=== PATIENT | male | born 1955 | race Caucasian/White ===

== ENCOUNTER 2018-02-26 14:19 | Inpatient (IN) | payer OTHER, MEDICARE ==
[~2018-02-26] VITALS: Ht 180.3 cm; Wt 113.4 kg
[~2018-02-26 14:19] MED LIST: ASPI81EC PO; CHOL10002 PO; LISI20 PO; METO50 PO; POTPHO PO; Prilosec Otc20 MG PO; SERT100 PO; SIMV40 PO; SULI150 PO
[2018-02-26 14:41] LABS: BASOPHILS ABSOLUTE AUTO 0.05 K/mm3 (0.00-0.23); BASOPHILS PERCENT AUTO 0 % (0-2); EOSINOPHILS ABSOLUTE AUTO 0.12 K/mm3 (0.00-0.68); EOSINOPHILS PERCENT AUTO 1 % (0-6); Hematocrit 40.2 % (37.0-53.0); Hemoglobin 13.5 g/dL (13.5-17.5); IMMATURE GRAN ABSOLUTE AUTO 0.16 K/mm3 (0.00-0.10); IMMATURE GRAN PERCENT AUTO 1 % (0-1); LYMPHOCYTES ABSOLUTE AUTO 1.77 K/mm3 (0.84-5.20); LYMPHOCYTES PERCENT AUTO 14 % (21-46); MONOCYTES PERCENT AUTO 6 % (4-13); Mean Corpuscular HGB 30.3 pg (26.0-34.0); Mean Corpuscular HGB Conc 33.6 g/dL (31.5-36.5); Mean Corpuscular Volume 90 fL (80-100); Mean Platelet Volume 9.9 fL (9.1-12.4); NEUTROPHILS ABSOLUTE AUTO 9.72 K/mm3 (1.96-9.15); NEUTROPHILS PERCENT AUTO 78 % (41-73); Platelet Count 219 K/mm3 (150-400); RDW Coefficient Variation 13.6 % (11.7-14.2); RDW Standard Deviation 44.6 fL (35.1-46.3); Red Blood Cell Count 4.46 M/mm3 (4.30-5.90); White Blood Cell Count 12.52 K/mm3 (4.00-11.30)
[2018-02-26 15:01] LABS: International Normalized Ratio 0.99; Prothrombin Time Results 10.2 Sec (9.7-11.5)
[2018-02-26 15:07] LABS: Albumin, Blood 4.3 g/dL (3.4-5.0); Albumin/Globulin Ratio 1.1 (0.8-1.8); Bilirubin, Total 0.7 mg/dL (0.1-1.0); Bun/Creatinine Ratio 17.2 (12.0-20.0); Calcium, Blood 9.8 mg/dL (8.5-10.1); Creatinine, Blood 1.45 mg/dL (0.60-1.20); Globulin, Blood 3.8 g/dL (2.2-4.0); Potassium, Blood 5.1 mmol/L (3.5-5.5); Total Protein, Blood 8.1 g/dL (6.4-8.2)
[2018-02-26] MEDS ORDERED: PSEU120ER (15:11)
[2018-02-26] MEDS ORDERED: METF500C PO (15:25)
[2018-02-26] MEDS ORDERED: ATOR40TA (15:26)
[2018-02-26] MEDS ORDERED: GLIP10 PO (15:26)
[2018-02-26] MEDS ORDERED: LAMO100 PO ×2 (15:27→20:55)
[2018-02-26] MEDS ORDERED: ATOR40TA PO (18:15)
[2018-03-02] MEDS ORDERED: METCAR500 PO (09:07)
[2018-03-02] MEDS ORDERED: OXYC5 PO (09:07)
== END 2018-03-02 10:01 | disposition home or self-care (01) | DRG 183 ==
LOC: ER 14:19 → SURS 14:20
PROVIDERS: Emergency Medicine
DX: S22.42XA Multiple fractures of ribs, left side, initial encounter for closed fracture (principal); S27.2XXA Traumatic hemopneumothorax, initial encounter; V84.5XXA Driver of special agricultural vehicle injured in nontraffic accident, initial encounter; I25.2 Old myocardial infarction; G40.909 Epilepsy, unspecified, not intractable, without status epilepticus; E78.5 Hyperlipidemia, unspecified; Z95.1 Presence of aortocoronary bypass graft
CPT/HCPCS: 36415; 70450; 71045; 71046; 71260; 72125; 74177; 80053; 82947; 83690; 84484; 85025; 85610; 93005; 93010; 94667; 96374; 97161; 97530; 99285-25; G8978; G8979; G8980; J1650; J1885; J3010; J7030; Q9967

== ENCOUNTER 2022-11-25 13:52 | Inpatient (IN) | payer OTHER, MEDICARE ==
[~2022-11-25] VITALS: Ht 180.3 cm; Wt 114.7 kg
[~2022-11-25 13:52] MED LIST changes: +ATOR40TA; +ATOR40TA PO; +GLIP10 PO; +LAMO100 PO; +METCAR500 PO; +METF500C PO; +OXYC5 PO; +PSEU120ER
[2022-11-25 14:48] LABS: BASOPHILS ABSOLUTE AUTO 0.04 K/mm3 (0.00-0.23); BASOPHILS PERCENT AUTO 0 % (0-2); EOSINOPHILS ABSOLUTE AUTO 0.14 K/mm3 (0.00-0.68); EOSINOPHILS PERCENT AUTO 1 % (0-6); Hematocrit 38.6 % (37.0-53.0); Hemoglobin 12.7 g/dL (13.5-17.5); IMMATURE GRAN PERCENT AUTO 1 % (0-1); LYMPHOCYTES ABSOLUTE AUTO 1.67 K/mm3 (0.84-5.20); LYMPHOCYTES PERCENT AUTO 16 % (21-46); MONOCYTES ABSOLUTE AUTO 0.65 K/mm3 (0.16-1.47); MONOCYTES PERCENT AUTO 6 % (4-13); Mean Corpuscular HGB 29.2 pg (26.0-34.0); Mean Corpuscular HGB Conc 32.9 g/dL (31.5-36.5); Mean Corpuscular Volume 89 fL (80-100); Mean Platelet Volume 9.3 fL (9.1-12.4); NEUTROPHILS ABSOLUTE AUTO 7.66 K/mm3 (1.96-9.15); NEUTROPHILS PERCENT AUTO 75 % (41-73); Platelet Count 215 K/mm3 (150-400); RDW Coefficient Variation 13.7 % (11.7-14.2); RDW Standard Deviation 44.3 fL (35.1-46.3); Red Blood Cell Count 4.35 M/mm3 (4.30-5.90); White Blood Cell Count 10.26 K/mm3 (4.00-11.30)
[2022-11-25 16:18] LABS: Albumin, Blood 3.9 g/dL (3.4-5.0); Bilirubin, Total 0.5 mg/dL (0.1-1.0); Bun/Creatinine Ratio 18.5 (12.0-20.0); Calcium, Blood 9.6 mg/dL (8.5-10.1); Creatinine, Blood 1.62 mg/dL (0.60-1.20); Potassium, Blood 5.3 mmol/L (3.5-5.5); Total Protein, Blood 7.9 g/dL (6.4-8.2)
[2022-11-25 18:48] VITALS: BP 116/81
--- NOTE | 2022-11-25 19:12 | NUR ---
ASSUMPTION OF CARE PT ARRIVED TO THE UNIT VIA HOSPITAL BED. HE IS ALERT AND ORIENTED. VSS, 02 100% ON 2L N/C. LUNG SOUNDS WERE COARSE AND DIMINISHED IN THE BASES. RUL CLEAR AND AN EXPIRATORY WHEEZE WAS NOTED IN THE RAZIA. PT EXPRESSED THAT HE WAS VERY PAINFUL WITH A PAIN RATING OF 155/10. THE PT WAS MEDICATED ACCORDING TO THE EMAR. THE PATIENT WAS ORIENTED TO THE ROOM AND HIS CALL LIGHT, AND EXPRESSED UNDERSTANDING. BED IN LOW POSITION AND CALL LIGHT IN REACH. WILL GIVE REPORT TO LEAD NUCLEAR MEDICINE TECHNOLOGIST RN.
[2022-11-25] MEDS ORDERED: ASPI81CH PO (19:38)
--- NOTE | 2022-11-25 20:30 | NUR ---
2030: IMAGING PERSONEL IN WITH PT FOR ULTRASOUND
[2022-11-26 04:15] VITALS: BP 96/85
--- NOTE | 2022-11-26 06:23 | NUR ---
SHIFT SUMMARY: PT IS A&0X4. REMAINED PAINFUL TO THE RIGHT RIBS T/O THE NIGHT. PAIN MANAGED WITH PO AND IV MEDICATION PER EMAR. PT TOLERATING FLUIDS AND VOIDING USING URINAL. PT WAS VERY PAINFUL WITH MOVEMENT. IMAGING SCHEDULED FOR THIS AM. ULTRASOUND COMPLETED LAST NIGHT. SEIZURE PADS IN PLACE FOR PT DUE TO HX. CONTINUOUS BIOX REMAINS IN PLACE AND 02% REMAINED STABLE T/O THE NIGHT. RESTING WITH CALL LIGHT IN REACH. WILL GIVE REPORT TO DAY TIME RN.
[2022-11-26 07:40] VITALS: BP 167/106
[2022-11-26 11:02] VITALS: BP 155/86
--- NOTE | 2022-11-26 12:26 | NUR ---
SKIN ASSESSMENT/DRESSING PT HAS RUPTURED BLISTERS UNDER AREA WHERE ADHESIVE WAS APPLIED FOR L AC IV. ALLEVYN DRESSING APPLIED. WILL CONTINUE TO MONITOR.
[2022-11-26 14:50] VITALS: BP 122/79
--- NOTE | 2022-11-26 17:25 | NUR ---
SHIFT SUMMARY PT IS A&OX4, PLEASANT, AND APPROPRIATE. PT IS VOIDING APPROPRIATELY, TOLERATING PO, AND AMB INDEPENDENTLY. PT'S PAIN MANAGED WITH TYLENOL, OXY, & DILAUDID. PT IS ON ROOM AIR AND VSS. PT WAS DIAPHORETIC WITH A LOW TEMP DURING SHIFT, BUT HAS SINCE RESOLVED. PT HAS RUPTURED BLISTERS UNDER AREA WHERE ADHESIVE WAS APPLIED FOR L AC IV AND ALLEVYN DRESSING WAS APPLIED. L AC IV WAS REMOVED THIS AM DUE TO INFILTRATION, SWELLING WAS NOTED. PT REPORTED NUMBNESS & TINGLING IN HIS R AC/ELBOW, DENIES NUMBNESS & TINGLING ELSWEHERE. PT'S LUNG SOUNDS DIMINISHED IN THE MID AND BASES, DENIES PAIN & SOB. PT HAS ABRASIONS ON HIS L & R LOWER LEG, R SHOULDER & UPPER ARM, & L FOREARM FROM THE ACCIDENT. WILL CONTINUE TO MONITOR AND REPORT TO THE ONCOMING RN.
[2022-11-26 19:36] VITALS: BP 204/67
[2022-11-26 21:10] VITALS: BP 165/94
[2022-11-27 03:48] VITALS: BP 145/93
--- NOTE | 2022-11-27 04:42 | NUR ---
SUMMARY PATIENT IS AOX3-4, HAS SOME FORGETFULNESS. R SIDE RIB FX, WITH PAIN TO LEFT SHOULDER AND CHEST. DRY UNPRODUCTIVE COUGH, DIMINSHED LUNGS SOUNDS IN BASES. RA, SATS ABOVE 95%. PATIENT IS USING IS AT BEDSIDE THIS SHIFT. EDUCATED ON THE IMPORTANCE OF SPLINTING WHILE COUGHING. PATIENT IS HAVING GENERALIZED WEAKNESS, AND BASELINE N/T IN FEET. USES URINAL AT AT BEDSIDE. FORGETS LIMITATIONS AND NEEDS REMINDING NOT TO GET UP WITH OUT ASSISTANCE. BED ALARM IS ON FOR SAFETY, SCD'S IN PLACE. VSS, CALL LIGHT IN REACH.
[2022-11-27 07:08] VITALS: BP 178/127
--- NOTE | 2022-11-27 08:30 | NUR ---
DR. COOPER ROUNDED THIS AM. DISCUSSED ONGOING PAIN MANAGEMENT CONCERNS. PT RATES PAIN AT 12/10 WHILE AT REST BUT WHEN EDUCATED ABOUT PAIN MEDICATION STATES HE IS ABLE TO WAIT 4 HOURS BETWEEN PAIN PILLS. PT IS ALSO GETTING TYLENOL. DR. COOPER NOTIFIED THAT PT WISHES TO GO HOME TODAY IF HE IS CLEARED BY THERAPY AND IF CLEARED BY SURGERY. WILL CONTINUE TO MONITOR.
--- NOTE | 2022-11-27 11:51 | NUR ---
PT WANTING TO SMOKE PT AND HIS S/O EDUCATED THAT [facility] IS A NON-SMOKING CAMPUS AND LEAVING CAMPUS WOULD RESULT IN AN AMA DISCHARGE PER HOSPITAL POLICY. PT WAS EDUCATED THAT HE CAN GO OUTSIDE TO GET FRESH AIR IF A FAMILY MEMBER IS ABLE TO TAKE HIME IN A W/C. PT WAS ALSO OFFERED NICOTINE GUM OR A PATCH WHICH HE DECLINED. PT REQUESTING TO DISCHARGE HOME, PT ADVISED THIS RN WILL REACH OUT TO THE DOCTOR REGARDING DISCHARGE.
--- NOTE | 2022-11-27 12:25 | NUR ---
REACHED OUT TO CARE MANAGEMENT REGARDING PREPARATION FOR DISCHARGE. SUSI BALDERAS MD OPHTHALMOLOGIST WILL ARRANGE HOME HEALTH AND DME. DR. CHE NOTIFIED THAT PT WISHES TO DC HOME TODAY.
[2022-11-27 12:31] VITALS: BP 144/80
[2022-11-27 15:39] VITALS: BP 142/78
[2022-11-27] MEDS ORDERED: ACET325 PO (15:43)
[2022-11-27] MEDS ORDERED: OXAYDO5 M1 PO (15:44)
--- NOTE | 2022-11-27 16:10 | NUR ---
IV REMOVAL REMOVED PT'S IV IN THE R HAND DUE TO DISCHARGE AT 16:05. PT TOLERATED WELL.
--- NOTE | 2022-11-27 16:45 | NUR ---
DR. COOPER AND DR. CHE NOTIFIED THAT PT'S TEMPORAL TEMPURATURES HAVE READ SUB NORMAL BUT ORAL TEMPS HAVE BEEN WNL. PT IS ASYMPTOMATIC OF HYPOTHERMIA. PT HAS HAD A FAN ON. PT ALSO REPORTED VISUAL HALLUCINATIONS THIS AFTERNOON. PT REPORTED THE HALLUCINATIONS RESOLVED AFTER HAVING SOMETHING TO EAT. DR. CHE AND DR. COOPER NOTIFIED OF HALLUCINATIONS AND STATED OK FOR PT TO DISCHARGE. PT AND HIS SPOUSE WERE ENCOURAGED TO F/U WITH HIS PCP AND TO NOTIFY THE DOCTOR IF THESE HALLUCINATIONS CONTINUE.
--- NOTE | 2022-11-27 16:49 | NUR ---
DISCHARGE PT DISCHARED AT APPROX 1645. PT WAS PROVIDED VERBAL AND WRITTEN INSTRUCTIONS. PT AND REPORTED UNDERSTANDING. PT WAS A&OX4, VSS, VOIDING APPROPRIATELY, TOLERATING PO, AND AMB. PAIN WAS MANAGED WITH TYLENOL AND OXY. PT'S BELONGING WERE RETURNED AND WAS ESCOURTED OUT IN A W/C.
== END 2022-11-27 17:00 | disposition home or self-care (01) | DRG 200 ==
LOC: ER 13:52 → SURS 17:45
PROVIDERS: Emergency Medicine; ADMIT Surgery
DX: S27.0XXA Traumatic pneumothorax, initial encounter (principal); S22.41XA Multiple fractures of ribs, right side, initial encounter for closed fracture; E78.5 Hyperlipidemia, unspecified; G40.909 Epilepsy, unspecified, not intractable, without status epilepticus; I25.10 Atherosclerotic heart disease of native coronary artery without angina pectoris; E11.22 Type 2 diabetes mellitus with diabetic chronic kidney disease; N18.30 Chronic kidney disease, stage 3 unspecified; F17.200 Nicotine dependence, unspecified, uncomplicated; W30.81XA Contact with agricultural transport vehicle in stationary use, initial encounter; Z79.84 Long term (current) use of oral hypoglycemic drugs; Z95.1 Presence of aortocoronary bypass graft; I25.2 Old myocardial infarction; Z98.890 Other specified postprocedural states; Z88.8 Allergy status to other drugs, medicaments and biological substances; Z79.899 Other long term (current) drug therapy; Z91.011 Allergy to milk products; Z91.018 Allergy to other foods; Z79.82 Long term (current) use of aspirin
CPT/HCPCS: 70450; 70496; 70498; 71045; 71260; 74177; 80053; 82947; 85025; 93005; 93010; 93880; 96374-59; 96375-59; 97112; 97116; 97162; 97166; 97530; 97535; 99285-25; A9270; J1170; J1650; J2405; Q9967

== ENCOUNTER 2023-12-31 07:53 | Day surgery (SDC) | payer OTHER ==
[~2023-12-31] VITALS: Ht 180.3 cm; Wt 115.3 kg
[~2023-12-31 07:53] MED LIST changes: +ACET325 PO; +ASPI81CH PO; +Balanced Salt Epinephrine Irrigation Solution 500 mL IR SCH; +Lidocaine HCl/Pf 1% 5 ML VIAL ONE; +Lidocaine HCl/Pf 1% 5 ML VIAL XX SCH; +Moxifloxacin HCL 0.5 MG/0.1 ML 0.4MLSYR RIGHTEYE SCH; +NS 500 ML IV ONE; +OXAYDO5 M1 PO; +PHENYLEPHRINE\\TROPICAMIDE\\TETRACAINE OPHTHALMIC DILATING SOLN RIGHTEYE PRN; +Phenylephrine Frt 10% Opth (ORSC) ONE; +Povidone-Iodine 450 DROP/30 ML Solution RIGHTEYE SCH; +Triamcinolone Inj Susp 40 MG / ML 1ML Vial INJ SCH; +Triamcinolone Inj Susp 40 MG / ML 1ML Vial ONE
[2023-12-31] MEDS ORDERED: FentaNYL Citrate 50 MCG/ML 2 ML Injection ONE (08:11)
[2023-12-31] MEDS ORDERED: Midazolam HCl 1MG / ML 2ML Vial ONE (08:11)
[2023-12-31] MEDS ORDERED: INSULANI SC (08:16)
[2023-12-31] MEDS ORDERED: NS 500 ML IV ONE (08:35)
--- NOTE | 2023-12-31 08:36 | NUR ---
12/31/23 0836 ECHO WEBER TETRECAINE: [id number] PLEDGIT: [id number]
[2023-12-31] MEDS ORDERED: Tetracaine HCl 0.5% Opth Soln 15 ml RIGHTEYE ONE (08:47)
[2023-12-31 09:12] VITALS: BP 156/76
== END 2023-12-31 09:30 | disposition home or self-care (01) ==
LOC: ORSCSDS 07:53
PROVIDERS: Ophthalmology
PROC: 08RJ3JZ Replacement of Right Lens with Synthetic Substitute, Percutaneous Approach (ICD-10-PCS; principal; 2023-12-31 09:00)
DX: E11.36 Type 2 diabetes mellitus with diabetic cataract (principal); H25.813 Combined forms of age-related cataract, bilateral; I10 Essential (primary) hypertension; E78.5 Hyperlipidemia, unspecified; I25.2 Old myocardial infarction; Z79.84 Long term (current) use of oral hypoglycemic drugs; Z79.4 Long term (current) use of insulin; Z79.899 Other long term (current) drug therapy; Z79.82 Long term (current) use of aspirin; E66.9 Obesity, unspecified; Z68.34 Body mass index [BMI] 34.0-34.9, adult; F32.A Depression, unspecified; G40.909 Epilepsy, unspecified, not intractable, without status epilepticus
CPT/HCPCS: 82947; J2001; J2250; J3010; J3301; J7040; V2632

== ENCOUNTER 2024-01-07 07:39 | Day surgery (SDC) | payer OTHER ==
[~2024-01-07] VITALS: Ht 180.3 cm; Wt 114.9 kg
[~2024-01-07 07:39] MED LIST changes: +INSULANI SC; +Moxifloxacin HCL 0.5 MG/0.1 ML 0.4MLSYR LEFTEYE SCH; -Moxifloxacin HCL 0.5 MG/0.1 ML 0.4MLSYR RIGHTEYE SCH; +PHENYLEPHRINE\\TROPICAMIDE\\TETRACAINE OPHTHALMIC DILATING SOLN LEFTEYE PRN; -PHENYLEPHRINE\\TROPICAMIDE\\TETRACAINE OPHTHALMIC DILATING SOLN RIGHTEYE PRN; -Phenylephrine Frt 10% Opth (ORSC) ONE; +Povidone-Iodine 450 DROP/30 ML Solution LEFTEYE SCH; -Povidone-Iodine 450 DROP/30 ML Solution RIGHTEYE SCH
[2024-01-07] MEDS ORDERED: MAGNESIUM OXID500 MG (08:33)
[2024-01-07] MEDS ORDERED: SULI150 (08:34)
[2024-01-07] MEDS ORDERED: NS 1,000 ML IV ONE (08:37)
[2024-01-07] MEDS ORDERED: Midazolam HCl 1MG / ML 2ML Vial ONE (08:53)
[2024-01-07] MEDS ORDERED: Tetracaine HCl 0.5% Opth Soln 15 ml LEFTEYE ONE (09:05)
[2024-01-07 09:29] VITALS: BP 161/94
== END 2024-01-07 09:38 | disposition home or self-care (01) ==
LOC: ORSCSDS 07:39
PROVIDERS: Ophthalmology
PROC: 08RK3JZ Replacement of Left Lens with Synthetic Substitute, Percutaneous Approach (ICD-10-PCS; principal; 2024-01-07 09:00)
DX: E10.36 Type 1 diabetes mellitus with diabetic cataract (principal); H25.812 Combined forms of age-related cataract, left eye; Z96.1 Presence of intraocular lens; H52.202 Unspecified astigmatism, left eye; I10 Essential (primary) hypertension; J44.9 Chronic obstructive pulmonary disease, unspecified; F17.210 Nicotine dependence, cigarettes, uncomplicated; I25.10 Atherosclerotic heart disease of native coronary artery without angina pectoris; E66.9 Obesity, unspecified; Z68.35 Body mass index [BMI] 35.0-35.9, adult; I25.2 Old myocardial infarction; Z79.84 Long term (current) use of oral hypoglycemic drugs; Z79.899 Other long term (current) drug therapy
CPT/HCPCS: 82947; J2001; J2250; J3301; J7040; V2632